=== PATIENT | female | born 2000 | race Caucasian/White ===

== ENCOUNTER 2022-03-23 23:57 | Emergency (ER) | payer BC ==
[~2022-03-23] VITALS: Ht 165.1 cm; Wt 95.3 kg
--- NOTE | 2022-03-24 00:20 | NUR ---
TO ER BED19. BIBS C/O LEFT ANKLE PAIN X1DAY. PT DENIES ANY TRAUMA. PT IS ALERT AND ORIENTED. BREATHING IS EVEN AND NONLABORTED. WARM BLANKETS PROVIDED FOR COMFORT. AWAITING MD ORDERS
[2022-03-24] MEDS ORDERED: IBUP-1955 PO (01:17)
--- NOTE | 2022-03-24 01:20 | NUR ---
ZAMZAM WRAP APPLIED TO RIGHT ANKLE
--- NOTE | 2022-03-24 01:25 | NUR ---
XRAY AT BEDSIDE
--- NOTE | 2022-03-24 01:29 | NUR ---
Patient discharged to home in stable condition. Written and verbal after care instructions given. Patient verbalizes understanding of instruction.
--- NOTE | 2022-03-24 01:29 | NUR ---
EMT TAUGHT PATIENT HOW TO USE CRUTCHES
[2022-03-24 01:30] VITALS: BP 123/81
== END 2022-03-24 01:30 | disposition home or self-care (01) ==
LOC: ER 03-24 00:08
DX: S93.402A Sprain of unspecified ligament of left ankle, initial encounter (principal); X50.1XXA Overexertion from prolonged static or awkward postures, initial encounter; Y93.89 Activity, other specified; Y92.89 Other specified places as the place of occurrence of the external cause; Y99.8 Other external cause status
CPT/HCPCS: 73590-TC; 73610-TC